=== PATIENT | female | born 1990 | race Caucasian/White ===

== ENCOUNTER → 2016-12-29 | Outpatient (CLI) | payer BC ==
[2016-12-29 08:57] LABS: HEMOGLOBIN 13.2 gm/dl (12.3-15.3); RED BLOOD COUNT 4.32 M/UL (4.00-5.10); WHITE BLOOD COUNT 4.5 K/UL (4.5-11.0)
[2016-12-29 09:53] LABS: BUN/CREATININE RATIO 13 (0-10)
== END ==
LOC: LAB 07:56
PROVIDERS: Physician Assistant
DX: K50.10 Crohn's disease of large intestine without complications (principal); Z88.1 Allergy status to other antibiotic agents
CPT/HCPCS: 36415; 80053; 82607; 82728; 83540; 83550; 84439; 84443; 85027; 86140

== ENCOUNTER → 2017-01-09 | Outpatient (CLI) | payer BC ==
[~2017-01-09] VITALS: Ht 172.7 cm; Wt 74.8 kg
[2017-01-09 09:02] LABS: HEMOGLOBIN 13.8 gm/dl (12.3-15.3); RED BLOOD COUNT 4.53 M/UL (4.00-5.10); WHITE BLOOD COUNT 5.2 K/UL (4.5-11.0)
[2017-01-09 09:11] LABS: BUN/CREATININE RATIO 14 (0-10)
== END ==
LOC: OPSV 12-28 08:00
PROVIDERS: Internal Medicine Gastroenterology
DX: K50.10 Crohn's disease of large intestine without complications (principal)
CPT/HCPCS: 36415; 80053; 85025; 86140; 96413; 96415; J1745; Q0163

== ENCOUNTER → 2017-03-06 | Outpatient (CLI) | payer BC ==
[~2017-03-06] VITALS: Ht 172.7 cm; Wt 74.8 kg
[2017-03-06 09:02] LABS: HEMOGLOBIN 13.6 gm/dl (12.3-15.3); RED BLOOD COUNT 4.45 M/UL (4.00-5.10); WHITE BLOOD COUNT 4.8 K/UL (4.5-11.0)
[2017-03-06 09:17] LABS: BUN/CREATININE RATIO 13 (0-10)
== END ==
LOC: OPSV 02-04 08:00
PROVIDERS: Internal Medicine Gastroenterology
DX: K50.10 Crohn's disease of large intestine without complications (principal)
CPT/HCPCS: 36415; 80053; 85025; 86140; 96413; 96415; J1745; Q0163

== ENCOUNTER → 2021-01-25 | Outpatient (CLI) | payer BC ==
[2021-01-25 13:12] LABS: HEMOGLOBIN 12.8 gm/dl (12.3-15.3); RED BLOOD COUNT 4.42 M/UL (4.00-5.10); WHITE BLOOD COUNT 6.7 K/UL (4.5-11.0)
[2021-01-25 13:51] LABS: BUN/CREATININE RATIO 14 (0-10)
[2021-01-31 23:07] LABS: QUANTIFERON MITOGEN VALUE >10.00 IU/mL (.); QUANTIFERON NIL VALUE 0.08 IU/mL (.); QUANTIFERON TB1 AG VALUE 0.04 IU/mL (.); QUANTIFERON TB2 AG VALUE 0.04 IU/mL (.); QUANTIFERON-TB GOLD PLUS Negative (Negative)
== END ==
LOC: LAB 09:17
PROVIDERS: Physician Assistant
DX: K50.10 Crohn's disease of large intestine without complications (principal)
CPT/HCPCS: 36415; 80053; 85025; 86140

== ENCOUNTER → 2022-06-08 | Outpatient (CLI) | payer BC | LOC: KOH-I 08:26 | DX: R10.84 Generalized abdominal pain (principal); K82.4 Cholesterolosis of gallbladder | CPT/HCPCS: 76705 ==

== ENCOUNTER 2022-06-24 15:55 | Emergency (ER) | payer BC ==
[2022-06-24 16:19] LABS: RED BLOOD COUNT 4.15 M/UL (4.00-5.10); WHITE BLOOD COUNT 7.9 K/UL (4.5-11.0)
[2022-06-24 17:16] LABS: BUN/CREATININE RATIO 14 (0-10)
[2022-06-24] MEDS ORDERED: BENTYL 20MG TAB20 MG PO (18:54)
== END 2022-06-24 19:25 | disposition home or self-care (01) ==
LOC: ER1 15:55
PROVIDERS: Family Medicine
DX: R10.13 Epigastric pain (principal); R10.12 Left upper quadrant pain; R10.819 Abdominal tenderness, unspecified site; Z88.1 Allergy status to other antibiotic agents; Z79.899 Other long term (current) drug therapy
CPT/HCPCS: 80053; 81001; 83690; 84703; 85025; 99284; Q9967

== ENCOUNTER → 2022-07-06 | Outpatient (CLI) | payer BC ==
[~2022-07-06] MED LIST: BENTYL 20MG TAB20 MG PO
== END ==
LOC: NM 08:55
DX: R10.84 Generalized abdominal pain (principal)
CPT/HCPCS: 78227; A9537; J2805

== ENCOUNTER → 2022-07-19 | Day surgery (SDC) | payer BC ==
[~2022-07-19] MED LIST changes: +HYDROCODON-ACE1 EAC4 PO; +NEXIUM40 MG PO; +STELARA90 MG/1 ML SQ; +ZOLOFT100 MG PO
== END | disposition home or self-care (01) ==
LOC: OR 08:00
DX: K81.1 Chronic cholecystitis (principal); K82.8 Other specified diseases of gallbladder; K21.9 Gastro-esophageal reflux disease without esophagitis; E66.9 Obesity, unspecified; Z68.30 Body mass index [BMI] 30.0-30.9, adult; F41.9 Anxiety disorder, unspecified; F32.A Depression, unspecified; Z79.899 Other long term (current) drug therapy; Z88.1 Allergy status to other antibiotic agents
CPT/HCPCS: 84703; C1729; J0690; J1100; J1170; J1885; J2001; J2250; J2405; J2550; J2704; J3010